=== PATIENT | female | born 1985 | race African-American/Black ===

== ENCOUNTER 2020-09-23 19:39 | Emergency (ER) | payer MEDICAID ==
[~2020-09-23] VITALS: Ht 167.6 cm; Wt 145.5 kg
[2020-09-23 19:41] VITALS: Ht 167.6 cm; Wt 145.5 kg
[2020-09-23] MEDS ORDERED: NORVASC5 MG PO (19:42)
[2020-09-23] MEDS ORDERED: HYDROCHLOROTH12.5 M1 PO (19:43)
[2020-09-23 20:04] LABS: BASOPHILS 0.2 % (0-2); BILIRUBIN NEGATIVE (NEGATIVE); HEMATOCRIT 39.9 % (36.0-48.0); HEMOGLOBIN 13.1 g/dL (12-16); IMMATURE GRANULOCYTES 0.3 % (0-5); KETONE SMALL mg/dL (NEGATIVE); LYMPHOCYTES 20.1 % (15-50); MCH 28.4 pg (26.0-34.0); MCHC 32.8 g/dL (31.0-37.0); MCV 86.4 fL (80.0-100.0); MEAN PLATELET VOLUME 9.9 fL (7.4-10.4); MONOCYTES 4.5 % (2-11); NEUTROPHIL ABS# 12.89 10x3/uL (1.56-6.13); NEUTROPHILS 71.9 % (40-80); NITRITE NEGATIVE (NEGATIVE); PLATELET COUNT 332 10x3/uL (130-400); RBC 4.62 10x6/uL (4.00-5.40); RDW 14.2 % (11.5-14.5); UROBILINOGEN NORMAL mg/dL (< 2); WBC 17.9 10x3/uL (4.8-10.8)
[2020-09-23 20:07] LABS: HCG URINE NEGATIVE (NEGATIVE)
[2020-09-23 20:11] LABS: ANION GAP 11.4 mmol/L (8-16); CALCIUM 9.5 mg/dL (8.5-10.1); CREATININE - SERUM 0.9 mg/dL (0.6-1.3); POTASSIUM - SERUM 3.4 mmol/L (3.5-5.1)
[2020-09-23 20:17] LABS: ALBUMIN 3.8 g/dL (3.4-5.0); BILIRUBIN - TOTAL 0.2 mg/dL (0.2-1.3); PROTEIN - SERUM 7.9 g/dL (6.4-8.2)
[2020-09-23] MEDS ORDERED: OMEPRAZOLE20 M1 PO (20:54)
[2020-09-23] MEDS ORDERED: ZOFRAN ODT4 MG/UDTAB PO (21:03)
[2020-09-23 22:11] VITALS: BP 144/75
== END 2020-09-23 22:12 | disposition home or self-care (01) ==
LOC: D.ER 19:39
PROVIDERS: Family Medicine
DX: R10.13 Epigastric pain (principal); R11.2 Nausea with vomiting, unspecified; K43.9 Ventral hernia without obstruction or gangrene

== ENCOUNTER 2020-09-26 15:35 | Emergency (ER) | payer MEDICAID ==
[~2020-09-26] VITALS: Ht 167.6 cm; Wt 145.5 kg
[~2020-09-26 15:35] MED LIST: HYDROCHLOROTH12.5 M1 PO; NORVASC5 MG PO; OMEPRAZOLE20 M1 PO; ZOFRAN ODT4 MG/UDTAB PO
[2020-09-26 15:46] VITALS: Ht 167.6 cm; Wt 145.5 kg
[2020-09-26] MEDS ORDERED: HYDROCODON-ACE1 EAC7 PO (16:22)
[2020-09-26 16:57] LABS: CALC OSMOLALITY 278 mosm/kg (275-300); CALCIUM 8.2 mg/dL (8.5-10.1); CHLORIDE - SERUM 104 mmol/L (98-107); CREATININE - SERUM 0.8 mg/dL (0.6-1.3); GLUCOSE 135 mg/dL (74-106); POTASSIUM - SERUM 3.4 mmol/L (3.5-5.1); SODIUM 138 mmol/L (136-145); UREA NITROGEN 16 mg/dL (7-18); eGFR NON AFRICAN AMERICAN 85 mL/min (90-120)
[2020-09-26 17:01] LABS: BASOPHILS 0.1 % (0-2); EOSINOPHILS 5.8 % (0-7); HEMATOCRIT 35.1 % (36.0-48.0); HEMOGLOBIN 11.5 g/dL (12-16); IMMATURE GRANULOCYTES 0.2 % (0-5); LYMPHOCYTE ABS# 2.62 10x3/uL (1.18-3.74); LYMPHOCYTES 17.7 % (15-50); MCH 28.3 pg (26.0-34.0); MCHC 32.8 g/dL (31.0-37.0); MCV 86.5 fL (80.0-100.0); MEAN PLATELET VOLUME 9.9 fL (7.4-10.4); MONOCYTES 4.6 % (2-11); NEUTROPHIL ABS# 10.59 10x3/uL (1.56-6.13); NEUTROPHILS 71.6 % (40-80); PLATELET COUNT 290 10x3/uL (130-400); RBC 4.06 10x6/uL (4.00-5.40); RDW 14.1 % (11.5-14.5); WBC 14.8 10x3/uL (4.8-10.8)
[2020-09-26 17:13] VITALS: BP 129/71
== END 2020-09-26 17:14 | disposition home or self-care (01) ==
LOC: D.ER 15:35
PROVIDERS: Emergency Medicine
DX: K43.9 Ventral hernia without obstruction or gangrene (principal); I10 Essential (primary) hypertension; R10.30 Lower abdominal pain, unspecified